=== PATIENT | female | born 1930 | race Caucasian/White ===

== ENCOUNTER 2018-08-11 22:22 | Emergency (ER) | payer OTHER, MEDICAID ==
[~2018-08-11] VITALS: Ht 154.9 cm; Wt 45.4 kg
[2018-08-11 22:30] VITALS: BP 111/69
--- NOTE | 2018-08-11 22:30 | NUR ---
pt biba als to bed 9
--- NOTE | 2018-08-11 23:14 | NUR ---
PT TO ED BIBA FOR C/O ABD PAIN S/P EATING A MEATBALL SANDWICH. +N/V/D. ABD HAS ACTIVE BOWEL SOUNDS TO ALL QUADRANTS. DENIES PAIN UPON PALPATION. PT HAS IV [employer] AND RECEIVED 4ZOFRAN IVP. PT PLACED INTO BED, PENDING MD VALDIVIA.
[2018-08-11 23:31] LABS: BASOPHILS % (AUTO) 0.4 % (0.0-2.0); EOSINOPHILS # (AUTO) 0.1 K/uL (0-0.4); EOSINOPHILS % (AUTO) 1.6 % (0.0-4.0); HEMATOCRIT 41.6 % (36-48); HEMOGLOBIN 13.2 g/dL (12.0-16.0); LYMPHOCYTES # (AUTO) 0.9 K/uL (2.5-16.5); LYMPHOCYTES % (AUTO) 10.3 % (20.5-51.1); MEAN CORPUSCULAR HEMOGLOBIN 29 pg (27-31); MEAN CORPUSCULAR HGB CONC 32 g/dL (33-37); MEAN CORPUSCULAR VOLUME 91.1 fL (80-94); MONOCYTES # (AUTO) 0.8 K/uL (0.8-1.0); MONOCYTES % (AUTO) 9.1 % (1.7-9.3); NEUTROPHILS # (AUTO) 6.7 K/uL (1.8-7.7); NEUTROPHILS % (AUTO) 78.6 % (42.2-75.2); PLATELET COUNT (AUTO) 204 K/uL (140-450); RED BLOOD CELL COUNT(AUTO) 4.56 MIL/uL (4.20-5.40); RED CELL DISTRIBUTION WIDTH 13.9 % (11.6-13.7); WHITE BLOOD COUNT (AUTO) 8.6 K/uL (4.8-10.8)
[2018-08-11] MEDS ORDERED: NACL 0.9% 500 ML IV ONE (23:35)
--- NOTE | 2018-08-11 23:50 | NUR ---
PT TO CT AT THIS TIME WITH TECH
--- NOTE | 2018-08-11 23:51 | NUR ---
PT RETURN FROM CT
[2018-08-11 23:58] LABS: ANION GAP 8.7 (8-16); CARBON DIOXIDE 35.1 mmol/L (21-32); CHLORIDE 102 mmol/L (98-107); CREATININE 0.8 mg/dL (0.6-1.3); GLUCOSE 117 mg/dL (74-106); POTASSIUM 3.8 mmol/L (3.5-5.1); SODIUM SERUM 142 mmol/L (136-145); UREA NITROGEN, BLOOD 26 mg/dL (7-18)
[2018-08-12 00:20] LABS: ALBUMIN 3.8 g/dL (3.4-5.0); ASPARTATE AMINOTRANSFERASE 28 U/L (15-37)
[2018-08-12 01:32] LABS: APPEARANCE,URINE CLEAR (CLEAR); COLOR,URINE YELLOW (YELLOW); PH,URINE 6.5 (5.0-9.0)
[2018-08-12 01:33] LABS: BILIRUBIN,URINE NEGATIVE (NEGATIVE); BLOOD, URINE NEGATIVE (NEGATIVE); LEUKOCYTE ESTERASE ,URINE NEGATIVE (NEGATIVE); NITRITE, URINE NEGATIVE (NEGATIVE); UGLUCOSE NEGATIVE (NEGATIVE)
[2018-08-12 01:34] LABS: RBC,URINE 0-5 (RARE) /HPF (0-5); WBC,URINE 0-5 (RARE) /HPF (0-5)
--- NOTE | 2018-08-12 01:39 | NUR ---
PT RESTING IN BED, VSS.
--- NOTE | 2018-08-12 01:50 | NUR ---
Patient discharged with v/s stable. Written and verbal after care instructions given and explained. Patient alert, oriented and verbalized understanding of instructions. Ambulatory with steady gait. All questions addressed prior to discharge. ID band removed. Patient advised to follow up with PMD. Rx of FLAGYL, CIPRO given. Patient educated on indication of medication including possible reaction and side effects. Opportunity to ask questions provided and answered.
[2018-08-12 01:51] VITALS: BP 121/61
== END 2018-08-12 01:50 | disposition home or self-care (01) ==
LOC: MED 22:22
DX: K29.70 Gastritis, unspecified, without bleeding (principal); K52.9 Noninfective gastroenteritis and colitis, unspecified; I10 Essential (primary) hypertension
CPT/HCPCS: 36415; 74176; 80053; 81001; 85025; 96360; 99284; J7030